=== PATIENT | female | born 1955 | race Caucasian/White ===

== ENCOUNTER 2024-03-29 08:34 | Day surgery (SDC) | payer MEDICARE ==
[2024-03-29] MEDS: Lactated Ringers 1,000 ML IV SCH (08:48)
[2024-03-29] MEDS ORDERED: CEFAZOLIN 2 GM/100 ML NaCl 2 GM/100 ML IVPB IV ONE (09:15)
[2024-03-29] MEDS: CEFAZOLIN 2 GM/100 ML NaCl 2 GM/100 ML IVPB IV SCH (09:16)
--- NOTE | 2024-03-29 09:16 | HP ---
HISTORY OF PRESENT ILLNESS: A moderate-sized cyst or nodule on the right buttock which is enlarging and desires excision. PAST MEDICAL HISTORY: Personal history of reflux and heartburn. HOME MEDICATIONS: Omeprazole, methimazole. ALLERGIES: Cipro, Levaquin, and sulfa. PAST SURGICAL HISTORY: Cataract surgery. SOCIAL HISTORY: No smoking or alcohol abuse. FAMILY HISTORY: Negative with regard to this problem. REVIEW OF SYSTEMS: Twelve systems reviewed. No chest pain or palpitations. Other systems negative or noncontributory as above and per preadmission questionnaire. PHYSICAL EXAMINATION: GENERAL: Height 5 feet 8 inches. BMI 26.6. No acute distress. HEENT: Sclerae nonicteric. NECK: No JVD. CHEST: Equal excursion, nonlabored breathing. CARDIOVASCULAR: Regular rate and rhythm. ABDOMEN: Soft. SKIN: On right buttocks, cyst or nodule, moderate size. EXTREMITIES: No cyanosis or edema. NEUROLOGIC: Alert, moving all extremities symmetrically. PSYCHIATRIC: Appropriate mood and affect. IMPRESSION: Enlarged right buttock cyst or nodule. Offered excision. Risks include but not limited to infection, risk of dehiscence particularly given location possibly requiring packing; risks of aches, pains, seroma, burning, or numbness; risk of anesthesia, DVT, PE, not limited to. We will excise. Once she heals the wound, will likely not recur. She could get other cysts or nodules adjacent to it elsewhere on her body. We will proceed with outpatient excisional biopsy of right buttock cyst or nodule as an outpatient. Otherwise, continue medications for her reflux and thyroid disorder.
[2024-03-29] MEDS ORDERED: SUBLIMAZE 100 MCG/2 ML ONE (12:07)
[2024-03-29] MEDS ORDERED: Hydromorphone 1 mg/ml Injection ONE (12:07)
[2024-03-29 12:43] VITALS: RESP 18
[2024-03-29 12:55] VITALS: TEMP 97.6
[2024-03-29 13:05] VITALS: BP 143/81; PULSE 79; O2SAT 99
--- NOTE | 2024-03-31 10:18 | OP ---
SURGERY DATE/TIME: 03/29/2024 [id number] PREOPERATIVE DIAGNOSIS: Enlarging nodular cyst, right buttocks. POSTOPERATIVE DIAGNOSIS: Enlarging nodular cyst, right buttocks. PROCEDURE: Excisional biopsy of approximately 2 cm with margins nodule of right buttocks with intermediate closure. SURGEON: Vin Hui MD ANESTHESIA: General. ESTIMATED BLOOD LOSS: Minimal. INDICATIONS: Consent was obtained. The patient was marked. DESCRIPTION OF PROCEDURE AND FINDINGS: She was taken to the operating room. General anesthesia was induced. She was prepped and draped in usual sterile fashion in the lateral position per Anesthesia and OR staff. After official time-out, no disagreement in planned procedure, marking out in spindle shape around the area, dissection carried down and around, taking a little bit of skin over the top of it down to normal-appearing deeper subcutaneous tissue. The specimen was passed off. Good hemostasis noted. The subcutaneous was closed with 3-0 Vicryl. Skin closed with 4-0 Vicryl, a couple layers of Dermabond, and some sterile dressing was applied. The patient tolerated the procedure well. 0.25% Marcaine local was infiltrated around the area. There were no immediate complication. It was cut on the back table. It was not a simple epidermoid cyst. It was temporarily put in a jar to ask the patient as she specifically requested that it not be sent because she could not afford it to be sent for pathologic evaluation. The staff asked her again, saying this did not look like a simple cyst, whether it is a variation of lipoma or other nodule or schwannoma. She specifically insisted that it not be sent for pathologic evaluation, and she had been given the option on multiple occasions. The patient tolerated the procedure well. There were no immediate complications. Findings were discussed with her significant other out in the waiting area.
== END 2024-03-29 13:17 | disposition home or self-care (01) ==
LOC: SDC 08:34
PROVIDERS: ATTEND Surgery
DX: L72.3 Sebaceous cyst (principal)
CPT/HCPCS: J0690; J1171; J3010